=== PATIENT | female | born 1955 | race Caucasian/White ===

== ENCOUNTER 2017-12-29 13:00 | Outpatient (AMBR) | payer BC, SELFPAY ==
--- NOTE | 2017-12-20 13:27 | PT.ODAYNRPT ---
PT Outpatient Daily Note Date of Service: December 20, 2017 OP Daily Note Visit Reasons: back pain Assessment: Pt came into PT. [place]. Pt is feeling worse and per her surgeon she'll feel worse first 3-5 days and it'll get better. Pt advised to hold PT until next week. Pt's appt reschedule for 12/29 at 1pm
--- NOTE | 2017-12-29 15:15 | PT.ODAYNRPT ---
PT Outpatient Daily Note Date of Service: December 29, 2017 OP Daily Note Visit Reasons: back pain Outpatient Physical Therapy Treatment Date: 12/29/17 Subjective: Pt's back pain is back to base line. Pt stated that the shots in the back didn't seem to help. Pt already called MD for a re-evaluation. Objective: Please see flow chart for list of ther ex performed Assessment: flexion biased exercises today; no resistance added to prevent back aggravation. Plan: Continue with PT Length of Time (minutes) of Treatment: 30 Minutes Office Procedures PT Procedures PT Date of Service: 12/29/17 Therapeutic Exercise 30 minutes: Yes
== END 2018-01-13 23:59 | disposition home or self-care (01) ==
PROVIDERS: PCP Family Medicine; Referring Provider Family Medicine; Visit Provider Family Medicine
DX: M54.5 Low back pain (principal); R53.1 Weakness; G89.29 Other chronic pain; R26.2 Difficulty in walking, not elsewhere classified
CPT/HCPCS: 97110

== ENCOUNTER 2018-06-01 13:00 | Outpatient (AMBR) | payer BC, SELFPAY ==
--- NOTE | 2018-05-18 14:41 | PT.ODAYNRPT ---
PT Outpatient Daily Note Date of Service: May 18, 2018 OP Daily Note Visit Reasons: BACK Outpatient Physical Therapy Treatment Date: 05/18/18 Subjective: Pt's back is feeling much better. Pt mention that she's able to get out of bed with less limitation. Pt still notice intermittent pain. Objective: Please see flow chart for list of ther ex performed Assessment: tolerate exercises with minimal pain; frequent cues to correct hip hinge exercises. very fatigue at the end of PT session Plan: Continue with PT Length of Time (minutes) of Treatment: 45 Minutes Office Procedures PT Procedures PT Date of Service: 05/18/18 Therapeutic Activity 15 minutes: Yes Therapeutic Exercise 30 minutes: Yes
--- NOTE | 2018-05-22 16:59 | PT.ODAYNRPT ---
PT Outpatient Daily Note Date of Service: May 22, 2018 OP Daily Note Visit Reasons: BACK Outpatient Physical Therapy Treatment Date: 05/22/18 Subjective: Pt's back was very sore after last treatment session. Pt was unable to move for 3 days. Objective: Please see flow chart for list of ther ex performed Assessment: modified exercises to more supine and seated ther ex, however, still engaging core exercises. Pt had last pain and soreness after today's session Plan: Continue with PT Length of Time (minutes) of Treatment: 30 Minutes Office Procedures PT Procedures PT Date of Service: 05/18/18 Therapeutic Activity 15 minutes: Yes Therapeutic Exercise 30 minutes: Yes PT Procedures PT Date of Service: 05/22/18 Therapeutic Exercise 30 minutes: Yes
--- NOTE | 2018-05-25 14:42 | PT.ODAYNRPT ---
PT Outpatient Daily Note Date of Service: May 25, 2018 OP Daily Note Visit Reasons: BACK Outpatient Physical Therapy Treatment Date: 05/25/18 Subjective: Pt feels better today. Pt was not as sore after last treatment session. Pt has been able to walk longer after last treatment session Objective: Please see flow chart for list of ther ex performed Assessment: minimal resistance today; slight difficulty with wall plank today. Pt has a small LOB after her last wall plank but was able to catch herself with the wall Plan: Continue with PT Length of Time (minutes) of Treatment: 30 Minutes Office Procedures PT Procedures PT Date of Service: 05/18/18 Therapeutic Activity 15 minutes: Yes Therapeutic Exercise 30 minutes: Yes PT Procedures PT Date of Service: 05/22/18 Therapeutic Exercise 30 minutes: Yes PT Procedures PT Date of Service: 05/25/18 Therapeutic Activity 15 minutes: Yes Therapeutic Exercise 15 minutes: Yes
--- NOTE | 2018-05-30 14:07 | PT.ODAYNRPT ---
PT Outpatient Daily Note Date of Service: May 30, 2018 OP Daily Note Visit Reasons: BACK Outpatient Physical Therapy Treatment Date: 05/30/18 Subjective: Pt feels okay today. Minimal soreness after last treatment session. 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 Objective: Please see flow chart for list of the ex performed Assessment: supine position with all core exercises. Pt tolerate ther ex well; slight difficulty with getting up to a sitting position after being on her back for so long. Plan: Continue with PT Length of Time (minutes) of Treatment: 45 Minutes Office Procedures PT Procedures PT Date of Service: 05/18/18 Therapeutic Activity 15 minutes: Yes Therapeutic Exercise 30 minutes: Yes PT Procedures PT Date of Service: 05/22/18 Therapeutic Exercise 30 minutes: Yes PT Procedures PT Date of Service: 05/25/18 Therapeutic Activity 15 minutes: Yes Therapeutic Exercise 15 minutes: Yes PT Procedures PT Date of Service: 05/30/18 Therapeutic Activity 15 minutes: Yes Therapeutic Exercise 30 minutes: Yes
--- NOTE | 2018-06-01 14:28 | PT.ODS1RPT ---
PT OP Progress/Discharge Note Date of Service: June 01, 2018 Progress Note/DC Note Progress Note/Discharge Note: DC Note Patient Information Visit Reasons: BACK Medical Diagnosis: M47.816; M54.5 Treatment Dx #1: Back Pain Treatment Dx #2: Hip Weakness Service Continue Service or Discharge: Discharge Status Subjective: Pt mention that her back pain is less 5/10, however, still notice intermittent numbness down the legs. Pt still has difficulty with prolonged standing, walks, and lifting more than 20 lbs. Pt has been able to get in/out of her car, sit longer, and perform chores with less limitation. Pt will be getting her gastric bypass over the weekend. Pt feels comfortable to be release with exercises to continue at home. Objective: L/S AROM: all motions are 100 % with minimal back pain Hip PROM: all motions are WNL Hip MMTs Glute Med: 3+/5 Glute Max: 3+5 Assessment: Pt demonstrate improvement with spinal mobility and hip strength, however, continues to have intermittent back pain with radicular symptoms. At this time Pt will be d/c from physical therapy per Pt's request until further notice from . Pt has met most goals set in therapy. Pt was instructed on HEP last session and educated to continue exercises to maintain overall mobility. Pt performed all exercises safely, thank you for your referrals. Plan: D/C home with HEP and follow up with MD [facility] Office Procedures PT Procedures PT Date of Service: 05/18/18 Therapeutic Activity 15 minutes: Yes Therapeutic Exercise 30 minutes: Yes PT Procedures PT Date of Service: 06/01/18 Therapeutic Exercise 15 minutes: Yes Self Care/Home Mgmt 15 minutes: Yes PT Procedures PT Date of Service: 05/22/18 Therapeutic Exercise 30 minutes: Yes PT Procedures PT Date of Service: 05/25/18 Therapeutic Activity 15 minutes: Yes Therapeutic Exercise 15 minutes: Yes PT Procedures PT Date of Service: 05/30/18 Therapeutic Activity 15 minutes: Yes Therapeutic Exercise 30 minutes: Yes
== END 2018-06-15 23:59 | disposition home or self-care (01) ==
PROVIDERS: PCP Family Medicine; Referring Provider Family Medicine; Visit Provider Family Medicine
DX: M54.5 Low back pain (principal); R53.1 Weakness; G89.29 Other chronic pain; R20.0 Anesthesia of skin; R26.2 Difficulty in walking, not elsewhere classified; M47.816 Spondylosis without myelopathy or radiculopathy, lumbar region
CPT/HCPCS: 97110; 97530; 97535